=== PATIENT | female | born 1985 | race Caucasian/White ===

== ENCOUNTER → 2022-02-04 11:32 | Outpatient (CLI) | payer OTHER, SELFPAY ==
--- NOTE | ~2022-02-04 | US_ITS ---
US soft tissue LE RT 02/04/2022 11:48 Indication: Localized swelling of the right lower leg Procedure: High-resolution Limited ultrasound of the right lower leg in the area of palpable concern Comparison: No prior studies for comparison. Findings: There is normal heterogeneous echotexture in the area examination without discrete solid or cystic mass. Impression: 1: Normal limited soft tissue ultrasound of the right lower leg medially in the area of palpable conc cathryn. No discrete mass. Reviewed, dictated and finalized at location B. Impression: 1: Normal limited soft tissue ultrasound of the right lower leg medially in the area of palpable concern. No discrete mass.
== END ==
PROVIDERS: PCP Physician Assistant; Visit Provider Physician Assistant
DX: R22.41 Localized swelling, mass and lump, right lower limb (principal)
CPT/HCPCS: 76882